=== PATIENT | male | born 1985 | race Caucasian/White ===

== ENCOUNTER 2020-01-31 20:10 | Emergency (ER) | payer OTHER, SELFPAY ==
--- NOTE | 2020-01-31 20:15 | ED_ITS ---
HPI - General Adult General Chief complaint: Arrhythmia/Palpitations Stated complaint: Elevated Heart Rate Time Seen by Provider: 01/31/20 20:15 History of Present Illness HPI narrative: 34-year-old gentleman with a history of hypertension and alcohol use disorder presents after noting that his heart rate has been elevated today. He had been checking his heart rate and had noted it was in the 120-130 range this caused him more anxiety and he believes he had a panic attack and that ca used his heart rate to go up to 170 and at that point he called 911. He does not have any pain, dyspnea, diaphoresis, nausea with any of this. He denies being ill recently and notes last time he was actually sick was well over 2 years ago. He states he did take his amlodipine and lisinopril both this morning and has been taking them regularly. He does note that he has been drinking moderately h eavily over the last 4 days and decided that he was going to stop and has not had his usual 7ish beers today. He denies any stimulant use or opiate use (IV or pills) Related Data Allergies Allergy/AdvReac Type Severity Reaction Status Date / Time No Known Drug Allergies Allergy Verified 01/31/20 21:33 Review of Systems Review of Systems Narrative: Pertinent positive and negative findings as per HPI Remainder of review of systems is otherwise unremarkable for Constitutional: Fevers, chills, weakness ENT: No sore throat, neck pain, ear pain CV: Chest pain, dyspnea on exertion Respiratory: Cough, wheeze, dyspnea GI: Nausea, vomiting, diarrhea, change in bowel habits, black or bloody stools : Dysuria, hematuria, flank pain MS: Muscle weakness, numbness, joint swelling or warmth Skin: Rashes, nonhealing lesions Neuro: Syncope, dizziness, tingling Patient History Medical History (Updated 01/31/20 @ 22:59 by Anahy Wright MD) Alcohol use disorder, mild, abuse (Acute) Hypertension (Acute) Social History Smoking Status: Current some day smoker Exam Narrative Exam Narrative: General: Healthy appearing, in no acute distress. Able to give a complete and coherent history. Well-nourished well-developed HEENT: Moist mucous membranes, normal sclera with reactive pupils, Neck: No JVD, supple Respiratory: Lungs are clear to auscultation, no wheezing no rales no rhonchi. Full and symmetrical air movement Cardiac: Tachycardic with regular rhythm no murmurs no bruits Abdomen: Soft nontender good bowel tones, no flank pain Skin: Warm and dry, no rashes Neurologic: Grossly neurologically intact with no obvious asymmetries or abnormalities Extremities: No trauma, well perfused Psych: Cooperative, appropriate insight and affect Initial Vital Signs Initial Vital Signs: Vital Signs Temperature 98.3 F 01/31/20 20:28 Pulse Rate 118 H 01/31/20 20:28 Respiratory Rate 16 01/31/20 20:28 Blood Pressure 136/76 01/31/20 20:28 Pulse Oximetry 98 01/31/20 20:28 Course Orders Ordered: ED Orders 01/31/20 20:35 Complete Blood Count AUTO DIFF Stat Comprehensive Metabolic Panel Stat Magnesium Stat Troponin I Stat Discontinued Medications Lorazepam (Ativan) 1 mg IV NOW ONE Stop: 01/31/20 20:20 Last Admin: 01/31/20 20:44 Dose: 1 mg Documented by: ELEAZAR Vital Signs Vital signs: Vital Signs - 8 hr 01/31/20 20:28 01/31/20 20:47 01/31/20 21:00 Temperature 98.3 F Pulse Rate 118 H 111 H 103 H Respiratory Rate 16 46 H 17 Blood Pressure 136/76 Pulse Oximetry 98 99 98 01/31/20 21:30 01/31/20 22:00 01/31/20 22:30 Temperature Pulse Rate 100 H 99 H 91 H Respiratory Rate 18 19 17 Blood Pressure Pulse Oximetry 97 97 96 Medical Decision Making Medical Records Medical records reviewed: Yes I reviewed the patient's medical records. Lab Data Lab results reviewed: Yes I reviewed the patient's lab results. Result diagrams: 01/31/20 20:35 01/31/20 20:35 Labs: Lab Results 01/31/20 01/31/20 Range/Units 20:35 20:35 WBC 6.6 (4.5-11.0) X10^3/uL RBC 3.97 L (4.5-5.9) X10^6/uL Hgb 13.1 L (13.5-17.5) g/dL Hct 37.4 L (41-53) % MCV 94.3 (80-100) fL MCH 32.9 (26-34) PG MCHC 34.9 (30-36) % RDW 12.3 (11.6-14.8) % Plt Count 211 (150-400) X10^3/uL Neut % (Auto) 70.5 (50-75) % Lymph % (Auto) 17.2 L (25-40) % [facility] % (Auto) 11.4 (3-14) % Eos % (Auto) 0.7 L (2-4) % Baso % (Auto) 0.2 (0-2) % Neut # (Auto) 4700 (9129-7981) /uL Lymph # (Auto) 1100 (3966-3426) /uL [facility] # (Auto) 800 (0-900) /uL Eos # (Auto) 0 (0-450) /uL Baso # (Auto) 0 (0-100) /uL Sodium 135 L (137-145) mmol/L Potassium 3.7 (3.4-5.1) mmol/L Chloride 98 (98-107) mmol/L Carbon Dioxide 29 (22-32) mmol/L BUN 12 (9-20) mg/dL Creatinine 1.23 (0.66-1.25) mg/dL Estimated GFR > 60.0 (>60) mL/min BUN/Creatinine Ratio 9.8 (6-22) Glucose 145 H (70-100) mg/dL Calcium 9.4 (8.4-10.2) mg/dL Magnesium 1.6 (1.6-2.3) mg/dL Total Bilirubin 0.5 (0.2-1.3) mg/dL AST 32 (17-59) IU/L ALT 30 (<50) IU/L Alkaline Phosphatase 90 (38-126) U/L Troponin I < 0.012 (0.01-0.034) ng/mL Total Protein 7.2 (6.3-8.2) g/dL Albumin 4.5 (3.5-5.0) g/dL Globulin 2.7 (1.7-4.1) g/dL Albumin/Globulin Ratio 1.7 (1.0-2.8) ECG Data Attestation: I personally reviewed and interpreted this ECG as follows: Interpretation: Sinus tach at 109 Normal axis, normal intervals No acute ischemic changes MDM Narrative Medical decision making narrative: 34-year-old gentleman presents with tachycardia and significant hypertension. Significantly improved after Ativan and fluids. Most consistent with acute alcohol withdrawal. No signs of renal failure, liver failure, pathologic arrhythmia, acute coronary syndrome or STEMI, or infection. Questions are answered, diagnosis is explained. Patient is safe for home discharge Discharge Plan Departure Patient Disposition: Home Clinical Impression: Acute dehydration, Panic attack Alcohol withdrawal Qualifiers: Complication of substance-induced condition: uncomplicated Qualified Code(s): F10.230 - Alcohol dependence with withdrawal, uncomplicated Discharge Date/Time: 01/31/20 23:06 Instructions: DI for Alcohol Use Disorder Activity Restrictions/Additional Instructions: Thank you for coming in today I think your initial symptoms were a combination of findings. Your slightly dehydrated and having moderate alcohol withdrawal symptoms with elevated heart rate and blood pressure. When you noticed the elevated heart rate he became more anxious and likely had a panic attack to explain the significantly elevated heart rate noted by the medics. In the emergency room you received a Liter of fluid and 1 mg of Ativan. Your blood work was very reassuring. There is no sign of infection, heart attack, heart attack like syndrome or other life-threatening diagnoses. Your blood pressure has come down nicely. I encourage you to continue on your current choice of not drinking. Please continue to take all of your blood pressure medications as prescribed If you find that you are feeling worse or having recurrent symptoms, please return to the emergency room and I am happy to re-evaluate. I wish you the best
[2020-01-31 20:28] VITALS: BP 136/76; PULSE 118; RESP 16; TEMP 36.8; O2SAT 98; BMI 28.8
[2020-01-31 20:41] LABS: Add Manual Diff / Slide Review NO; Basophils Absolute Auto 0 /uL (0-100); Basophils Percent Auto 0.2 % (0-2); Eosinophils Absolute Auto 0 /uL (0-450); Eosinophils Percent Auto 0.7 % (2-4); Hematocrit 37.4 % (41-53); Hemoglobin 13.1 g/dL (13.5-17.5); Lymphocytes Absolute Auto 1100 /uL (1100-4500); Lymphocytes Percent Auto 17.2 % (25-40); Mean Corpuscular HGB Conc 34.9 % (30-36); Mean Corpuscular Hemoglobin 32.9 PG (26-34); Mean Corpuscular Volume 94.3 fL (80-100); Monocytes Absolute Auto 800 /uL (0-900); Monocytes Percent Auto 11.4 % (3-14); Neutrophils Absolute Auto 4700 /uL (1500-7000); Neutrophils Percent Auto 70.5 % (50-75); Platelet Count 211 X10^3/uL (150-400); Red Blood Cell Count 3.97 X10^6/uL (4.5-5.9); Red Cell Distribution Width 12.3 % (11.6-14.8); White Blood Cell Count 6.6 X10^3/uL (4.5-11.0)
[2020-01-31] MEDS: LORazepam 2 MG/ML INJ 1 MG IV (20:44)
[2020-01-31 20:47] VITALS: PULSE 111; RESP 46; O2SAT 99
[2020-01-31 20:52] LABS: Alanine Aminotransferase 30 IU/L (<50); Albumin 4.5 g/dL (3.5-5.0); Albumin Globulin Ratio 1.7 (1.0-2.8); Alkaline Phosphatase 90 U/L (38-126); Aspartate Aminotransferase 32 IU/L (17-59); BUN Creatinine Ratio 9.8 (6-22); Bilirubin Total 0.5 mg/dL (0.2-1.3); Blood Urea Nitrogen 12 mg/dL (9-20); Calcium 9.4 mg/dL (8.4-10.2); Carbon Dioxide 29 mmol/L (22-32); Chloride 98 mmol/L (98-107); Estimated Glomerular Filt Rate > 60.0 mL/min (>60); Globulin 2.7 g/dL (1.7-4.1); Glucose 145 mg/dL (70-100); HEMOLYSIS < 15 (0-50); Magnesium 1.6 mg/dL (1.6-2.3); Potassium 3.7 mmol/L (3.4-5.1); Sodium 135 mmol/L (137-145); Total Protein 7.2 g/dL (6.3-8.2)
[2020-01-31 21:00] VITALS: PULSE 103; RESP 17; O2SAT 98
[2020-01-31 21:03] LABS: Troponin I < 0.012 ng/mL (0.01-0.034)
[2020-01-31 21:30] VITALS: PULSE 100; RESP 18; O2SAT 97
[2020-01-31 22:00] VITALS: PULSE 99; RESP 19; O2SAT 97
[2020-01-31 22:30] VITALS: PULSE 91; RESP 17; O2SAT 96
== END 2020-01-31 23:06 | disposition home or self-care (01) ==
PROVIDERS: Emergency Provider Emergency Medicine
DX: E86.0 Dehydration (principal); F41.0 Panic disorder [episodic paroxysmal anxiety]; F10.230 Alcohol dependence with withdrawal, uncomplicated; R00.0 Tachycardia, unspecified
CPT/HCPCS: 36415; 80053; 83735; 84484; 85025; 93005; 93010; 96374; 99282; 99284; J2060